=== PATIENT | male | born 1990 | race Caucasian/White ===

== ENCOUNTER 2017-02-08 11:08 | Emergency (ER) | payer SELFPAY ==
[2017-02-08 11:22] VITALS: BP 101/57
[2017-02-08] MEDS ORDERED: Naproxen TAB* 250 MG PO ONE (11:30)
--- NOTE | 2017-02-08 11:30 | UC ---
Respiratory Complaint HPI - HPI Summary HPI Summary: 27 yo male with 1 day hx of fever/shaking chills/myalgias and cough - History of Current Complaint Chief Complaint: UCRespiratory Stated Complaint: SOB,FEVER,COUGH,RIGHT ARM/HAND NUMBNESS Time Seen by Provider: 02/08/17 11:17 Hx Obtained From: Patient Onset/Duration: Gradual Onset, Lasting Hours Timing: Constant Severity Initially: Severe Severity Currently: Severe Pain Intensity: 8 Pain Scale Used: 0-10 Numeric Character: Cough: Nonproductive Aggravating Factors: Nothing Alleviating Factors: Nothing Associated Signs And Symptoms: Positive: Fever, Pleuritic Chest Pain, Nasal Congestion - Allergies/Home Medications Allergies/Adverse Reactions: Allergies Allergy/AdvReac Type Severity Reaction Status Date / Time Bee Venom Allergy Anaphylatic Verified 02/08/17 11:15 Shock Vancomycin Allergy Hives/Diff. Verified 02/08/17 11:15 Breathing/I tching Home Medications: Home Medications Acetaminophen [Tylenol] 650 mg PO Q4H PRN 02/08/17 [History Confirmed 02/08/17] PMH/Surg Hx/FS Hx/Imm Hx Previously Healthy: Yes - Surgical History Surgical History: None - Family History Known Family History: Negative: Cardiac Disease, Hypertension, Diabetes - Social History Alcohol Use: Occasionally Substance Use Type: None Smoking Status (MU): Smoker, Current Status Unknown Type: eCigarettes Amount Used/How Often: 5-6 times daily - Immunization History Most Recent Influenza Vaccination: not this season Review of Systems Constitutional: Fever, Chills, Fatigue Skin: Negative Eyes: Negative ENT: Sore Throat, Nasal Discharge Respiratory: Cough Cardiovascular: Negative Gastrointestinal: Negative Genitourinary: Negative Motor: Negative Neurovascular: Negative Musculoskeletal: Myalgia Neurological: Headache Psychological: Negative All Other Systems Reviewed And Are Negative: Yes Physical Exam Triage Information Reviewed: Yes Appearance: Well-Appearing, No Pain Distress, Well-Nourished Vital Signs: Initial Vital Signs Temp 101.2 F 02/08/17 11:16 Pulse 91 02/08/17 11:16 Resp 18 02/08/17 11:16 BP 101/57 02/08/17 11:16 Pulse Ox 100 02/08/17 11:16 Vital Signs Reviewed: Yes Eye Exam: Normal Eyes: Positive: Conjunctiva Clear. Negative: Conjunctiva Inflamed ENT: Positive: Hearing grossly normal, Pharynx normal, Nasal congestion, Nasal drainage, TMs normal. Negative: Tonsillar exudate, Trismus, Muffled/hoarse voice Neck: Positive: Supple, Nontender, No Lymphadenopathy Respiratory: Positive: Lungs clear, Normal breath sounds, No respiratory distress, No accessory muscle use Cardiovascular: Positive: RRR, No Murmur Musculoskeletal: Positive: ROM Intact, No Edema Neurological Exam: Normal Neurological: Positive: Alert, Muscle Tone Normal, Other: - no focal neurologic exam Psychological Exam: Normal Skin Exam: Normal UC Diagnostic Evaluation - Laboratory O2 Sat by Pulse Oximetry: 100 - normal/not hypoxic Respiratory Course/Dx - Differential Dx/Diagnosis Provider Diagnoses: influenza Discharge - Discharge Plan Condition: Stable Disposition: HOME Prescriptions: Benzonatate CAP* [Tessalon CAP*] 100 - 200 mg PO TID PRN #28 cap PRN Reason: Cough Guaifenesin-Codeine [Cheratussin AC] 5 - 10 ml PO Q4HR PRN #200 syp MDD 60 PRN Reason: Cough Naproxen [Naproxen 500 MG TABS] 500 mg PO BID PRN #30 tab PRN Reason: Pain Oseltamivir CAP* [Tamiflu CAP*] 75 mg PO BID #10 cap Patient Education Materials: Influenza (ED) Forms: *Work Release Additional Instructions: rest fluids recheck in 3-4 days if not better
== END 2017-02-08 11:58 | disposition home or self-care (01) ==
LOC: UCCORT 11:08
DX: J11.1 Influenza due to unidentified influenza virus with other respiratory manifestations (principal); Z88.1 Allergy status to other antibiotic agents; F17.210 Nicotine dependence, cigarettes, uncomplicated
CPT/HCPCS: 87502; 99202; A9270-GY; G0463

== ENCOUNTER 2017-02-11 10:35 | Emergency (ER) | payer SELFPAY ==
[2017-02-11 11:13] VITALS: BP 94/54
--- NOTE | 2017-02-11 12:32 | UC ---
FLU HPI - HPI Summary HPI Summary: PATIENT ARRIVES TO WITH CC OF FLU SYMPTOMS LASTING 4-5 DAYS. HE WAS SEEN IN OUR CLINIC [address] SORENSEN AND WAS FLU POSITIVE. HE WAS GIVEN TAMIFLU WHICH HE STATES HE DID NOT TAKE FOR FEAR OF UPSET STOMACH. HE WAS ALSO PRESCRIBED NAPROXEN, TESSALON AND CHERRYTUSSIN. HE STATES THE TESSALON HAS CAUSED HIM TO HAVE AN UPSET STOMACH WITH N/V. HE WAS TOLD TO RETURN TODAY IF SYMPTOMS HAVE NOT SUBSIDED SINCE HE NEEDS A NOTE FOR WORK. HE ALSO NOTES TO FEELING DEHYDRATED DESPITE DRINKING COPIOUS AMOUNTS OF WATER. HE STATES THE MORE WATER HE DRINKS, THE MORE NAUSEOUS HE BECOMES. MYALGIAS HAVE DISSIPATED, BUT FEVERS ARE STILL RUNNING 103. TODAY ON ARRIVAL HE IS 97.9. DENIES SANCHEZ BUT ENDORSES FATIGUE AND DIZZINESS. 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 - History of Current Complaint Chief Complaint: UCGeneralIllness Stated Complaint: RE CHECK MED Time Seen by Provider: 02/11/17 11:46 Hx Obtained From: Patient Onset/Duration: Gradual Onset Severity Currently: Moderate Severity Initially: Moderate Pain Intensity: 0 Pain Scale Used: 0-10 Numeric Associated Signs & Symptoms: Positive: Fever, T Max - 103, F/C, Myalgia, Cough Related Hx: Possible Flu/Infectious Exposure - Risk Factors Influenza Risk Factors: Negative - Allergy/Home Medications Allergies/Adverse Reactions: Allergies Allergy/AdvReac Type Severity Reaction Status Date / Time Bee Venom Allergy Anaphylatic Verified 02/11/17 11:13 Shock Vancomycin Allergy Hives/Diff. Verified 02/11/17 11:13 Breathing/I tching PMH/Surg Hx/FS Hx/Imm Hx Previously Healthy: Yes - Surgical History Surgical History: None - Family History Known Family History: Negative: Cardiac Disease, Hypertension, Diabetes - Social History Occupation: Employed Full-time Lives: With Family Alcohol Use: Weekly Substance Use Type: None Smoking Status (MU): Light Every Day Tobacco Smoker Type: Cigarettes, eCigarettes Amount Used/How Often: 5-6 times daily - Immunization History Most Recent Influenza Vaccination: not this season Review of Systems Constitutional: Fever, Chills, Fatigue Skin: Negative ENT: Sore Throat Respiratory: Negative, Cough Cardiovascular: Negative Gastrointestinal: Abdominal Pain, Vomiting Genitourinary: Negative Motor: Weakness Neurovascular: Negative Musculoskeletal: Myalgia Neurological: Headache Psychological: Negative All Other Systems Reviewed And Are Negative: Yes Physical Exam Triage Information Reviewed: Yes Appearance: No Pain Distress, Ill-Appearing Vital Signs: Initial Vital Signs Temp 97.6 F 02/11/17 11:06 Pulse 57 02/11/17 11:06 Resp 16 02/11/17 11:06 BP 94/54 02/11/17 11:06 Pulse Ox 100 02/11/17 11:06 Vital Signs Reviewed: Yes Eyes: Positive: Conjunctiva Clear ENT: Positive: Pharynx normal, TMs normal Neck exam: Normal Neck: Positive: Supple, No Lymphadenopathy Respiratory Exam: Normal Respiratory: Positive: Chest non-tender, Lungs clear Cardiovascular Exam: Normal Cardiovascular: Positive: RRR Musculoskeletal Exam: Normal Musculoskeletal: Positive: Strength Intact Neurological Exam: Normal Neurological: Positive: Alert Psychological: Positive: Normal Response To Family Skin Exam: Normal Flu Course/Dx - Course Course Of Treatment: PATIENT GIVEN ZOFRAN FOR RELIEF OF NAUSEA. DISCONTINUE TESSALON. ENCOURAGED GATORADE SUPPLEMENTATION WITH EVERY GLASS OF WATER TO BALANCE ELECTROLYTES. NOTE GIVEN FOR WORK TO EXTEND 2 MORE DAYS. ENCOURAGED TYLENOL WITH FEVERS OVER 100.5. PATIENT AGREES AND WILL FOLLOW UP IF NEEDED. - Differential Dx/Diagnosis Differential Diagnosis/HQI/PQRI: Influenza, Pneumonia, Upper Respiratory Infection Provider Diagnoses: INFLUENZA Discharge - Discharge Plan Condition: Stable Disposition: HOME Prescriptions: Ondansetron ODT TAB* [Zofran 4 MG Odt TAB*] 4 mg PO Q6H PRN #12 tab.odt MDD 4 PRN Reason: Nausea Forms: *Work Release Referrals: Non Staff,Doctor [Primary Care Provider] - Additional Instructions: FOLLOW UP WITH PCP REST HUMIDIFIER IN THE HOME TYLENOL FOR TEMPS ABOVE 100.5 SUPPLEMENT WITH GATORADE FOR EVERY GLASS OF WATER ZOFRAN NEEDED FOR NAUSEA
== END 2017-02-11 12:15 | disposition home or self-care (01) ==
LOC: UCCORT 10:35
DX: J11.1 Influenza due to unidentified influenza virus with other respiratory manifestations (principal); Z88.1 Allergy status to other antibiotic agents; F17.210 Nicotine dependence, cigarettes, uncomplicated
CPT/HCPCS: 99211; G0463

== ENCOUNTER 2017-12-14 09:56 | Emergency (ER) | payer BC ==
[2017-12-14 11:59] VITALS: BP 117/69
--- NOTE | 2017-12-14 12:21 | UC ---
Respiratory Complaint HPI - HPI Summary HPI Summary: cough x 7 days + chest congestion , wheezing , sob +fever / chills 3 days ago no nasal congestion , no sore throat, no runny nose - History of Current Complaint Chief Complaint: UCRespiratory Stated Complaint: SOB/SANCHEZ Time Seen by Provider: 12/14/17 11:42 Hx Obtained From: Patient Onset/Duration: Gradual Onset, Lasting Days - 7, Still Present Timing: Constant Severity Initially: Moderate Severity Currently: Moderate Pain Intensity: 0 Character: Cough: Nonproductive Aggravating Factors: Exertion, Deep Breaths Alleviating Factors: Nothing Associated Signs And Symptoms: Positive: URI, Nasal Congestion. Negative: Dyspnea, Fever, Chills, Pleuritic Chest Pain, Wheezing, Hemoptysis, Dizziness, Calf Pain, Calf Swelling, Hoarseness, Sinus Discomfort - Allergies/Home Medications Allergies/Adverse Reactions: Allergies Allergy/AdvReac Type Severity Reaction Status Date / Time vancomycin Allergy Severe rash, Verified 12/14/17 11:59 difficulty breathing Penicillins Allergy Intermediate Rash Verified 12/14/17 12:00 PMH/Surg Hx/FS Hx/Imm Hx Previously Healthy: Yes - Surgical History Surgical History: None - Family History Known Family History: Negative: Diabetes - Social History Alcohol Use: Occasionally Substance Use Type: None Smoking Status (MU): Never Smoked Tobacco Type: eCigarettes Review of Systems Constitutional: Fever, Chills, Fatigue Skin: Negative Eyes: Negative ENT: Nasal Discharge Respiratory: Cough Cardiovascular: Negative Gastrointestinal: Negative Genitourinary: Negative Is Patient Immunocompromised?: No All Other Systems Reviewed And Are Negative: Yes Physical Exam Triage Information Reviewed: Yes Appearance: Well-Appearing, No Pain Distress, Well-Nourished Vital Signs: Initial Vital Signs Temp 99.1 F 12/14/17 11:54 Pulse 87 12/14/17 11:54 Resp 18 12/14/17 11:54 BP 117/69 12/14/17 11:54 Pulse Ox 100 12/14/17 11:54 Vital Signs Reviewed: Yes Eyes: Positive: Conjunctiva Clear ENT: Positive: Normal ENT inspection, Hearing grossly normal, Pharynx normal Neck exam: Normal Neck: Positive: Supple, Nontender, No Lymphadenopathy Respiratory: Positive: Chest non-tender, Lungs clear, Normal breath sounds Cardiovascular: Positive: RRR, No Murmur, Pulses Normal Skin Exam: Normal Diagnostic Evaluation - Laboratory O2 Sat by Pulse Oximetry: 100 Respiratory Course/Dx - Differential Dx/Diagnosis Provider Diagnoses: viral bronchitis Discharge - Discharge Plan Condition: Stable Disposition: HOME Patient Education Materials: Acute Bronchitis (ED) Referrals: No Primary Care Phys,NOPCP [Primary Care Provider] - 7 Days
--- NOTE | 2017-12-14 12:55 | RAD ---
INDICATION: Cough and shortness of breath. COMPARISON: There are no prior studies available for comparison. TECHNIQUE: Dual-energy PA and lateral views of the chest were obtained. FINDINGS: The heart is within normal limits in size. Mediastinal and hilar contours appear within normal limits. The lungs are clear. No pleural effusion is present. IMPRESSION: NO EVIDENCE FOR ACTIVE CARDIOPULMONARY DISEASE.
== END 2017-12-14 13:05 | disposition home or self-care (01) ==
LOC: EDBD → UCCORT 09:56 → MERGE 09:56 → UCCORT 13:05
DX: J20.8 Acute bronchitis due to other specified organisms (principal); Z72.89 Other problems related to lifestyle
CPT/HCPCS: 71046; 99201; G0463